=== PATIENT | male | born 1985 | race Two or more races ===

== ENCOUNTER 2018-02-27 11:58 | Emergency (ER) | payer SELFPAY ==
[2018-02-27 12:19] VITALS: BP 118/85; PULSE 84; TEMP 98.3; BMI 26.0
[2018-02-27] MEDS ORDERED: KETOROLAC TROMETHAMINE 60 MG/2 ML VIAL IM ONE (12:29)
[2018-02-27] MEDS ORDERED: KETOROLAC TROMETHAMINE 60 MG/2 ML VIAL ONE (12:32)
--- NOTE | 2018-02-27 12:52 | PDOC ---
History of Present Illness - General Chief Complaint: Back Pain Stated Complaint: BACK PAIN Time Seen by Provider: 02/27/18 12:26 - History of Present Illness Initial Comments: 32-year-old male with lower back pain in bilateral posterior lateral leg radiculopathy to the level of his thighs 2 weeks. Slowly increasing. No comorbidities no loss of bowel or bladder function or saddle paresthesia. Number relief with Motrin. 02/27/18 12:48 Past History - Past Medical History Allergies/Adverse Reactions: Allergies Allergy/AdvReac Type Severity Reaction Status Date / Time No Known Allergies Allergy Verified 02/27/18 12:15 Home Medications: Ambulatory Orders Cyclobenzaprine HCl [Flexeril 10 mg] 10 mg PO HS PRN #10 tablet 02/27/18 Ibuprofen [Motrin -] 600 mg PO TID #30 tablet 02/27/18 COPD: No - Immunization History Immunization Up to Date: Yes - Suicide/Smoking/Psychosocial Hx Smoking History: Former smoker Have you smoked in the past 12 months: Yes If you are a former smoker, when did you quit?: 7 months ago Information on smoking cessation initiated: No Hx Alcohol Use: No Drug/Substance Use Hx: No Review of Systems - Review of Systems Musculoskeletal: Yes: See HPI, Back Pain All Other Systems: Reviewed and Negative *Physical Exam - Vital Signs Last Vital Signs Temp Pulse Resp BP Pulse Ox 98.3 F 84 18 118/85 99 02/27/18 12:15 02/27/18 12:15 02/27/18 12:15 02/27/18 12:15 02/27/18 12:15 - Physical Exam Comments: Lumbar spine skin color and temperature are normal range of motion is slightly decreased. He has minimal paralumbar musculature spasm and tenderness. 5 out of 5 strength in bilateral lower extremities without gross sensorimotor deficits. He is neurovascularly intact. Thighs and calves are soft and nontender. 02/27/18 12:49 ED Treatment Course - Medications Given in the ED: ED Medications Discontinued Medications Generic Name Dose Route Start Last Admin Trade Name Freq PRN Reason Stop Dose Admin Ketorolac Tromethamine 60 mg 02/27/18 12:29 02/27/18 12:35 Toradol Injection - IM 02/27/18 12:30 60 mg ONCE ONE Administration Medical Decision Making - Medical Decision Making His is lumbar radiculopathy. May be due to spasm muscle strain or disc. Most likely desk. His exam is basically benign. Has no tenderness or palpable spasm. I'll treat him with anti-inflammatories and a muscle relaxer and have her follow -up with spine surgery for further evaluation and treatment options. 02/27/18 12:49 *DC/Admit/Observation/Transfer Diagnosis at time of Disposition: Lumbar radiculopathy - Discharge Dispostion Disposition: HOME Condition at time of disposition: Stable Decision to Admit order: No - Prescriptions Prescriptions: Cyclobenzaprine HCl [Flexeril 10 mg] 10 mg PO HS PRN #10 tablet PRN Reason: Muscle Spasms Ibuprofen [Motrin -] 600 mg PO TID #30 tablet - Referrals Referrals: Nilesh Cardenas MD [Staff Physician] - - Patient Instructions Printed Discharge Instructions: Lumbar Radiculopathy, DI for Lumbar Radiculopathy Additional Instructions: Return to the emergency room should symptoms worsen or go unresolved. Please follow-up with spine surgery in 1-2 days for further evaluation and treatment options. The muscle relaxants will make you sleepy. One tablet before bedtime. Anti-inflammatory should be taken with food one tablet 3 times a day for bothers her stomach discontinue the medication. - Post Discharge Activity Forms/Work/School Notes: Back to Work
== END 2018-02-27 12:53 | disposition home or self-care (01) ==
LOC: JERFT 11:58
PROC: 3E0233Z Introduction of Anti-inflammatory into Muscle, Percutaneous Approach (ICD-10-PCS; principal; 2018-02-27)
DX: M54.16 Radiculopathy, lumbar region (principal)
CPT/HCPCS: 99281-25

== ENCOUNTER 2019-06-08 18:26 | Emergency (ER) | payer OTHER ==
--- NOTE | 2019-06-08 18:31 | PDOC ---
Rapid Medical Evaluation Time Seen by Provider: 06/08/19 18:30 Medical Evaluation: Allergies Allergy/AdvReac Type Severity Reaction Status Date / Time No Known Allergies Allergy Verified 02/27/18 12:15 06/08/19 18:30 HPI: Fever and URI symptoms x4 days now with questionable rectal bleed during BM PE: No gross deficits Orders: Labs Discharge Disposition - Diagnosis Viral URI with cough - Referrals - Patient Instructions - Post Discharge Activity
[2019-06-08 18:32] VITALS: BP 138/88; PULSE 99; TEMP 98.9; BMI 27.6
[2019-06-08] MEDS ORDERED: SODIUM CHLORIDE 1,000 ML IV STA (19:25)
[2019-06-08 20:05] LABS: BASO % 0.4 % (0-2.0); EOS % 0.2 % (0-4.5); HEMOGLOBIN 15.8 GM/dL (11.7-16.9); MCH 27.7 pg (25.7-33.7); MCHC 32.3 g/dl (32.0-35.9); MEAN CELL VOLUME 85.7 fl (80-96); MEAN PLT VOLUME 9.1 fl (7.5-11.1); MONO % 10.1 % (3.8-10.2); NEUT % 74.3 % (42.8-82.8); PLATELET COUNT 237 K/MM3 (134-434); RBC 5.72 M/mm3 (4.00-5.60); RDW 13.1 % (11.9-15.9); RETICULOCYTES 0.44 % (0.5-1.5); WHITE BLOOD COUNT 8.7 K/mm3 (4.0-10.0)
--- NOTE | 2019-06-08 20:10 | PDOC ---
History of Present Illness - General History Source: Patient Exam Limitations: Clinical Condition - History of Present Illness Initial Comments: 06/08/19 20:06 Patient with no significant past medical history presented with complaint of 5- day history of persistent fevers, dry cough, nasal congestion, body aches and now with blood-tinged stool today. Patient report has been taking over-the- counter medication Tylenol for fevers. Patient reported just the bathroom today had a bowel movement which was solid and had blood in the toilet bowl. Denies active rectal bleeding after. Denies recent travel, vomiting, weakness. Denies taking the medication today for symptoms Is this a multiple visit Asthma Patient?: No Timing/Duration: other (5 days) <Kaden Early - Last Filed: 06/08/19 20:57> <Elroy Schultz - Last Filed: 06/09/19 02:30> - General Chief Complaint: Rectal Bleed Stated Complaint: FEVER Time Seen by Provider: 06/08/19 18:30 Past History - Past Medical History COPD: No - Immunization History Immunization Up to Date: Yes - Psycho Social/Smoking Cessation Hx Smoking History: Never smoked Have you smoked in the past 12 months: Yes If you are a former smoker, when did you quit?: 7 months ago Hx Alcohol Use: No Drug/Substance Use Hx: No <Kaden Early - Last Filed: 06/08/19 20:57> <Elroy Schultz - Last Filed: 06/09/19 02:30> - Past Medical History Allergies/Adverse Reactions: Allergies Allergy/AdvReac Type Severity Reaction Status Date / Time No Known Allergies Allergy Verified 06/08/19 18:32 Home Medications: Ambulatory Orders Cyclobenzaprine HCl [Flexeril 10 mg] 10 mg PO HS PRN #10 tablet 02/27/18 Ibuprofen [Motrin -] 600 mg PO TID #30 tablet 02/27/18 Benzonatate [Tessalon Pearls -] 100 mg PO Q8H PRN #21 capsule 06/08/19 Ipratropium [place] 2 spray NS BID PRN #1 spray 06/08/19 Ondansetron [Zofran *Odt*] 4 mg SL TID #21 od.tablet 06/08/19 Review of Systems - Review of Systems Able to Perform ROS?: Yes Is the patient limited Khmer proficient: No Constitutional: Yes: Chills, Fever, Malaise HEENTM: Yes: Symptoms Reported, See HPI, Nose Congestion. No: Eye Pain, Blurred Vision, Tearing, Recent change in vision, Double Vision, Cataracts, Ear Pain, Ocular Prothesis, Ear Discharge, Nose Pain, Tinnitus, Nose Bleeding, Hearing Loss, Throat Pain, Throat Swelling, Mouth Pain, Dental Problems, Difficulty Swallowing, Mouth Swelling, Other Respiratory: No: Symptoms reported, See HPI, Cough, Orthopnea, Shortness of Breath, SOB with Exertion, SOB at Rest, Stridor, Wheezing, Productive cough, Hemoptysis, Other Cardiac (ROS): No: Symptoms Reported, See HPI, Chest Pain, Edema, Irregular Heart Rate, Lightheadedness, Palpitations, Syncope, Chest Tightness, Other ABD/GI: Yes: Symptoms Reported, See HPI, Rectal Bleeding. No: Abdominal Distended, Diarrhea, Difficulty Swallowing, Nausea, Poor Appetite, Vomiting, Indigestion, Abdominal cramping Musculoskeletal: No: Symptoms Reported Integumentary: No: Symptoms Reported, Rash Neurological: No: Symptoms reported, Numbness, Dizziness All Other Systems: Reviewed and Negative <Kaden Early - Last Filed: 06/08/19 20:57> *Physical Exam - Vital Signs Last Vital Signs Temp Pulse Resp BP Pulse Ox 98.9 F 99 H 18 138/88 99 06/08/19 18:29 06/08/19 18:29 06/08/19 18:29 06/08/19 18:29 06/08/19 18:29 - Physical Exam 06/08/19 20:09 GENERAL: Well developed, well nourished. Awake and alert. No acute distress. HEENT: Normocephalic, atraumatic. PERRLA, EOMI. No conjunctival pallor. Sclera are non-icteric. Moist mucous membranes. Oropharynx is clear. NECK: Supple. Full ROM. CARDIOVASCULAR: Regular rate and rhythm. No murmurs, rubs, or gallops. Distal pulses are 2+ and symmetric. PULMONARY: No evidence of respiratory distress. Lungs clear to auscultation bilaterally. No wheezing, rales or rhonchi. ABDOMINAL: Soft. Non-tender. Non-distended. No rebound or guarding. No organomegaly. Normoactive bowel sounds. MUSCULOSKELETAL Normal range of motion at all joints. SKIN: Warm and dry. Normal capillary refill. No rashes. No jaundice. : no hemorrhoid or rectal fissues. no blood in rectum NEUROLOGICAL: Alert, awake, appropriate. Gait is normal without ataxia. PSYCHIATRIC: Cooperative. Good eye contact. Appropriate mood General Appearance: Yes: Nourished, Appropriately Dressed. No: Apparent Distress <Kaden Early - Last Filed: 06/08/19 20:57> - Vital Signs Last Vital Signs Temp Pulse Resp BP Pulse Ox 98.9 F 99 H 18 138/88 99 06/08/19 18:29 06/08/19 18:29 06/08/19 18:29 06/08/19 18:29 06/08/19 18:29 <Elroy Schultz - Last Filed: 06/09/19 02:30> ED Treatment Course - LABORATORY CBC & Chemistry Diagram: 06/08/19 19:50 06/08/19 19:50 - ADDITIONAL ORDERS Additional order review: Laboratory Results 06/08/19 19:35 Stool Occult Blood Negative <Kaden Early - Last Filed: 06/08/19 20:57> - LABORATORY CBC & Chemistry Diagram: 06/08/19 19:50 06/08/19 19:50 - ADDITIONAL ORDERS Additional order review: Laboratory Results 06/08/19 06/08/19 19:50 19:35 Sodium 137 Potassium 3.9 Chloride 102 Carbon Dioxide 30 Anion Gap 5 L BUN 15.7 Creatinine 1.0 Est GFR (CKD-EPI)AfAm 114.11 Est GFR (CKD-EPI)NonAf 98.45 Random Glucose 91 Calcium 9.6 Total Bilirubin 0.4 AST 28 ALT 29 Alkaline Phosphatase 92 Total Protein 8.4 H Albumin 4.4 Stool Occult Blood Negative 06/08/19 19:50 RBC 5.72 H MCV 85.7 MCHC 32.3 RDW 13.1 MPV 9.1 Neutrophils % 74.3 Lymphocytes % 15.0 Monocytes % 10.1 Eosinophils % 0.2 Basophils % 0.4 - Medications Given in the ED: ED Medications Discontinued Medications Generic Name Dose Route Start Last Admin Trade Name Freq PRN Reason Stop Dose Admin Sodium Chloride 1,000 mls @ 1,000 mls/hr 06/08/19 19:25 06/08/19 19:55 Normal Saline - IV 06/08/19 20:24 1,000 mls/hr ASDIR STA Administration <Elroy Schultz - Last Filed: 06/09/19 02:30> Medical Decision Making - Medical Decision Making 06/08/19 20:07 Patient with no significant past medical history presented with complaint of 5- day history of persistent fevers, dry cough, nasal congestion, body aches and now with blood-tinged stool today. Patient report has been taking over-the- counter medication Tylenol for fevers. Patient reported just the bathroom today had a bowel movement which was solid and had blood in the toilet bowl. Denies active rectal bleeding after. Denies recent travel, vomiting, weakness. Denies taking the medication today for symptoms Clinical exam unremarkable with lungs clear to auscultation and normal cardiac exam. No abdominal tenderness. Rectal exam shows no hemorrhoids or fissures. No blood on rectal exam. Symptoms likely viral URI with rectal bleed from constipation. CBC, CMP, PT and PTT labs ordered from triage. Influenza and rapid flu test ordered to rule out strep and influenza as cause of fevers. Guaiac fecal stool test sent. IV hydration with normal saline 1 L ordered and patient reported feeling dehydrated. Treat based on lab result 06/08/19 20:52 CBC and chemistry lab unremarkable. PT and PTT without acute abnormality. Rapid strep and rapid flu negative. Guaiac occult stool test was negative for blood. Patient symptoms likely viral URI and rectal bleeding was likely caused by hard stool scraping the rectum. Patient advised to increase fluid intake and follow-up with GI as needed for rectal bleeding. Rx for Tessalon Perles sent as needed for cough and Atrovent nasal spray for nasal congestion with PCP follow-up. Patient stable for discharge <Kaden Early - Last Filed: 06/08/19 20:57> - Medical Decision Making The patient was seen and evaluated in conjunction with MANNY Early under my direct supervision, ancillary studies were reviewed. I agree with the plan as outlined by MANNY Early. <Elroy Schultz - Last Filed: 06/09/19 02:30> Discharge - Discharge Information Problems reviewed: Yes - Admission No <Kaden Early - Last Filed: 06/08/19 20:57> <Elroy Schultz - Last Filed: 06/09/19 02:30> - Discharge Information Clinical Impression/Diagnosis: Viral URI with cough, Rectal bleed Condition: Stable Disposition: HOME - Additional Discharge Information Prescriptions: Benzonatate [Tessalon Pearls -] 100 mg PO Q8H PRN #21 capsule PRN Reason: Cough Ipratropium [place] 2 spray NS BID PRN #1 spray PRN Reason: nasal congestion Ondansetron [Zofran *Odt*] 4 mg SL TID #21 od.tablet - Follow up/Referral Referrals: Clifton Brito MD [Staff Physician] - - Patient Discharge Instructions Patient Printed Discharge Instructions: DI for Viral Upper Respiratory Infection -- Adult, DI for Rectal Bleeding Additional Instructions: Your blood work is normal. Your flu and strep test is negative. Your symptoms is likely caused by viral infection. Continue with Tylenol alternating with motrin as needed for fever. Your rectal bleed was likely caused by craping of your stool in rectum and test sent shows no blood in stool. Follow-up with referred GI Doctor Dr. Brito if rectal bleed comes back. Take prescribed medication for cough and congestion. Increase fluid intake. Follow-up with your PCP - Post Discharge Activity Work/Back to School Note: Back to Work
[2019-06-08 20:32] LABS: ALBUMIN 4.4 g/dl (3.4-5.0); BILIRUBIN,TOTAL 0.4 mg/dL (0.2-1); BLOOD UREA NITROGEN 15.7 mg/dL (7-18); CALCIUM 9.6 mg/dL (8.5-10.1); POTASSIUM 3.9 mmol/L (3.5-5.1); TOT PROT 8.4 g/dl (6.4-8.2)
== END 2019-06-08 21:14 | disposition home or self-care (01) ==
LOC: JER 18:26
PROC: 3E0337Z Introduction of Electrolytic and Water Balance Substance into Peripheral Vein, Percutaneous Approach (ICD-10-PCS; principal; 2019-06-08)
DX: J06.9 Acute upper respiratory infection, unspecified (principal); B97.89 Other viral agents as the cause of diseases classified elsewhere; K59.00 Constipation, unspecified; K62.5 Hemorrhage of anus and rectum
CPT/HCPCS: 36415; 80053; 82272; 85025; 85044; 87070; 87804; 87880; 96360; 99283-25; J7030